=== PATIENT | female | born 1960 | race Asian ===

== ENCOUNTER 2020-01-03 19:18 | Emergency (ER) | payer OTHER ==
[~2020-01-03] VITALS: Ht 160 cm; Wt 58.2 kg
[~2020-01-03 19:18] MED LIST: NOCURR
[2020-01-03] MEDS ORDERED: OMEG-136 PO (19:28)
[2020-01-03] MEDS ORDERED: CALC-1038 PO (19:28)
[2020-01-03] MEDS ORDERED: FERR236T3 PO (19:28)
[2020-01-03] MEDS ORDERED: CETI-450 PO (19:28)
[2020-01-03] MEDS ORDERED: FLUT16H NASAL (19:28)
[2020-01-03] MEDS ORDERED: IBUPROFEN 600 MG TABLET PO ONE (20:30)
[2020-01-03 22:05] VITALS: BP 139/72
== END 2020-01-03 22:22 | disposition home or self-care (01) ==
LOC: EMS 19:21
DX: S70.01XA Contusion of right hip, initial encounter (principal); S80.01XA Contusion of right knee, initial encounter; V03.99XA Pedestrian with other conveyance injured in collision with car, pick-up truck or van, unspecified whether traffic or nontraffic accident, initial encounter; Y93.89 Activity, other specified; Y92.89 Other specified places as the place of occurrence of the external cause; Y99.8 Other external cause status
CPT/HCPCS: 29505; 29530; 73502